=== PATIENT | female | born 1970 | race Caucasian/White ===

== ENCOUNTER 2018-04-29 22:02 | Emergency (ER) | payer MEDICAID, SELFPAY ==
[2018-04-29 22:13] VITALS: BP 125/99; PULSE 112; RESP 22; TEMP 38.2; O2SAT 96
[2018-04-29 22:47] VITALS: TEMP 38.2
[2018-04-29] MEDS: Ibuprofen 600 MG TAB PO (22:47)
--- NOTE | 2018-04-29 23:13 | W.ED.GENAD ---
Discharge Plan Disposition Patient Disposition: HOME Condition: Stable Discharge Details Chief Complaint: RespSymp Clinical Impression: Influenza Primary Care Provider: Thaddeus Urban ED Provider: Horacio Summers Home Meds and New Rx's Prescriptions: New oseltamivir [Tamiflu] 75 mg capsule 75 mg PO DAILY Qty: 9 RF: 0 Continued levothyroxine 50 MCG tablet 50 mcg PO DAILY RF: 0 ibuprofen 600 MG tablet 600 mg PO TID Qty: 30 RF: 1 Discontinued hydrocortisone 30 GM ointment 1 applic Topical PRN PRNRF: 0 acyclovir 800 MG tablet 800 mg PO 5X/DAY Qty: 25 RF: 0 tramadol 50 MG tablet 50 mg PO Q4H PRN PRN (Reason: Pain) Qty: 30 RF: 1 Discharge Instructions Instructions: Influenza (ED) Stand Alone Forms: Work Release Referrals: Thaddeus Urban [Primary Care Provider] - (As needed for reassessment or if not improving in 1 week) Medical Decision Making Patient reports for the last 24 hours she has had significant nasal congestion, headache, myalgias, fever chills, cough, rib pain. She states that her daughter who is also with her in the emergency department had symptoms that started 3 days ago and they have both been ill.. 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 Physical exam shows a ill-appearing adult female with clear lung sounds, obvious nasal congestion, mild posterior pharynx erythema, bilateral normal TMs and otherwise unremarkable examination. I am concerned about influenza given recent local prevalence in patient's symptoms so influenza swab was sent. Pending results patient given Motrin for fever control as she is febrile and tachycardic on presentation. Review of patient's influenza testing which is negative but patient's daughter is positive I did discuss with patient risk versus benefit of Tamiflu due to the fact that I feel that she does have influenza illness in spite of negative test. Patient stated understanding of risk versus benefit of Tamiflu and started therapy immediately this evening and states clear understanding to take medication until fully completed. Patient given work note to excuse her from any work activities and informed to return for any new or worsening symptoms otherwise to follow-up with primary care. After discussion of diagnosis and plan of care patient has no further needs, questions, or concerns and states clear understanding to return to the emergency department for any worsening symptoms. HPI General Mode of arrival: ambulatory. Date/Time Provider Initiated Documentation: 04/29/18 22:19. Limitations to Documentation: no limitations. Information obtained by: patient and RN notes reviewed. History of Present Illness 47 year old F presents to the emergency department with the chief complaint of fever, body aches, cough, sore throat, ear, described as severe, with intensity rated at 8. Quality is described as aching, and is localized to the chest. Patient reports no radiation. Patient started experiencing this day(s) (1) and it has been constant. No relieving factors improve symptom(s), No exacerbating factors reported . Patient notes no other symptoms.. Patient did receive the following treatments prior to arrival, none Related Data Home Medications Medication Instructions Recorded Confirmed ibuprofen 600 mg PO TID #30 tab 12/06/14 01/06/15 levothyroxine 50 mcg PO DAILY 12/06/14 01/06/15 oseltamivir [Tamiflu] 75 mg PO DAILY #9 cap 04/29/18 Previous Rx's Medication Instructions Recorded ibuprofen 600 mg PO TID #30 tab 12/06/14 oseltamivir [Tamiflu] 75 mg PO DAILY #9 cap 04/29/18 Allergies Allergy/AdvReac Type Severity Reaction Status Date / Time No Known Allergies Allergy Unverified 04/29/18 22:39 General Stated Complaint: RespSymp SANA: 3 Review of Systems Constitutional Reports chills, Reports difficulty sleeping (Due to coughing), Reports fatigue, Reports fever(s) and Reports malaise ENT Reports otalgia, Reports hoarseness, Reports nasal congestion, Reports sinus pressure and Reports sore throat Cardiovascular Denies dyspnea Respiratory Reports cough, Reports pain on inspiration, Reports pain with cough and Denies dyspnea Gastrointestinal Reports abdominal pain and Reports nausea Musculoskeletal Reports myalgias and Denies joint swelling Integumentary/Breasts Denies rash Endocrine Reports fatigue [facility] Medical History Hypothyroidism (Chronic) Surgical History Ligation of fallopian tube (Chronic) Social History Smoking/Tobacco Use Status: Former Tobacco Use Exam Const General: cooperative, comfortable and no acute distress Orientation: alert, awake and oriented x3 [facility] Head: normal to inspection Ears: hearing grossly normal bilaterally and TM's normal bilaterally General nose exam: external nose normal, no nasal discharge and other (Nasal congestion) Face and sinus: sinus tenderness frontal and maxillary Mouth: oral mucosae normal Throat: abnormal tonsil bilaterally erythema (mild) and posterior oropharynx abnormal erythema Eyes General: appearance normal, both eyes and all related structures Conjunctivae: conjunctivae normal Sclera: sclerae normal Neck Neck: normal visual inspection, full ROM, no lymphadenopathy, meningismus present and no JVD Resp Effort & Inspection: normal respiratory effort, able to speak in complete sentences, no audible wheezes, cough Quality of cough: actively coughing and not labored Auscultation: clear to auscultation bilaterally Cardio Rate: regular rate Rhythm: regular rhythm Heart Sounds: S1 normal and S2 normal Skin General skin exam: no rashes or lesions noted and dry skin Rashes: no rashes Neuro General: alert, awake, oriented x3 and gait normal Course Vital Signs Temperature 38.2 C H 04/29/18 22:13 Pulse 112 H 04/29/18 22:13 Respiratory Rate 22 04/29/18 22:13 Blood Pressure 125/99 H 04/29/18 22:13 Pulse Oximetry 96 04/29/18 22:13 Temperature 38.2 C H 04/29/18 22:47 Temperature Source Temporal Artery Scan 04/29/18 22:13 Pulse 112 H 04/29/18 22:13 Respiratory Rate 22 04/29/18 22:13 Respiratory Effort Non-Labored 04/29/18 22:39 Respiratory Depth Normal 04/29/18 22:39 Blood Pressure 125/99 H 04/29/18 22:13 Blood Pressure Position Sitting 04/29/18 22:13 Pulse Oximetry 96 04/29/18 22:13 Oxygen Delivery Method Room Air 04/29/18 22:13 Oxygen Flow Rate 0 04/29/18 22:13 Pain Level 10 04/29/18 22:13 Comment 04/29/18 22:13 Lab/Test Results Lab/Test Results: 04/29/18 22:24 Nasopharynx Influenza Types A,B Antigen - Final
--- NOTE | 2018-04-29 23:16 | ED.GENADUL_ITS ---
Discharge Plan Disposition Patient Disposition: HOME Condition: Stable Discharge Details Chief Complaint: RespSymp Clinical Impression: Influenza Primary Care Provider: Thaddeus Urban ED Provider: Horacio Summers Home Meds and New Rx's Prescriptions: New oseltamivir [Tamiflu] 75 mg capsule 75 mg PO DAILY Qty: 9 RF: 0 Continued levothyroxine 50 MCG tablet 50 mcg PO DAILY RF: 0 ibuprofen 600 MG tablet 600 mg PO TID Qty: 30 RF: 1 Discontinued hydrocortisone 30 GM ointment 1 applic Topical PRN PRNRF: 0 acyclovir 800 MG tablet 800 mg PO 5X/DAY Qty: 25 RF: 0 tramadol 50 MG tablet 50 mg PO Q4H PRN PRN (Reason: Pain) Qty: 30 RF: 1 Discharge Instructions Instructions: Influenza (ED) Stand Alone Forms: Work Release Referrals: Thaddeus Urban [Primary Care Provider] - (As needed for reassessment or if not improving in 1 week) Medical Decision Making Patient reports for the last 24 hours she has had significant nasal congestion, headache, myalgias, fever chills, cough, rib pain. She states that her daughter who is also with her in the emergency department had symptoms that started 3 days ago and they have both been ill.. 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 Physical exam shows a ill-appearing adult female with clear lung sounds, obvious nasal congestion, mild posterior pharynx erythema, bilateral normal TMs and otherwise unremarkable examination. I am concerned about influenza given recent local prevalence in patient's symptoms so influenza swab was sent. Pending results patient given Motrin for fever control as she is febrile and tachycardic on presentation. Review of patient's influenza testing which is negative but patient's daughter is positive I did discuss with patient risk versus benefit of Tamiflu due to the fact that I feel that she does have influenza illness in spite of negative test. Patient stated understanding of risk versus benefit of Tamiflu and started therapy immediately this evening and states clear understanding to take medication until fully completed. Patient given work note to excuse her from any work activities and informed to return for any new or worsening symptoms otherwise to follow-up with primary care. After discussion of diagnosis and plan of care patient has no further needs, questions, or concerns and states clear understanding to return to the emergency department for any worsening symptoms. HPI General Mode of arrival: ambulatory . Date/Time Provider Initiated Documentation: 04/29/18 22:19 . Limitations to Documentation: no limitations . Information obtained by: patient and RN notes reviewed . History of Present Illness 47 year old F presents to the emergency department with the chief complaint of fever, body aches, cough, sore throat, ear, described as severe, with intensity rated at 8. Quality is described as aching, and is localized to the chest. Patient reports no radiation. Patient started experiencing this day(s) (1) and it has been constant. No relieving factors improve symptom(s), No exacerbating factors reported . Patient notes no other symptoms.. Patient did receive the following treatments prior to arrival, none Related Data Home Medications Medication Instructions Recorded Confirmed ibuprofen 600 mg PO TID #30 tab 12/06/14 01/06/15 levothyroxine 50 mcg PO DAILY 12/06/14 01/06/15 oseltamivir [Tamiflu] 75 mg PO DAILY #9 cap 04/29/18 Previous Rx's Medication Instructions Recorded ibuprofen 600 mg PO TID #30 tab 12/06/14 oseltamivir [Tamiflu] 75 mg PO DAILY #9 cap 04/29/18 Allergies Allergy/AdvReac Type Severity Reaction Status Date / Time No Known Allergies Allergy Unverified 04/29/18 22:39 General Stated Complaint: RespSymp SANA: 3 Review of Systems Constitutional Reports chills, Reports difficulty sleeping (Due to coughing), Reports fatigue, Reports fever(s) and Reports malaise ENT Reports otalgia, Reports hoarseness, Reports nasal congestion, Reports sinus pressure and Reports sore throat Cardiovascular Denies dyspnea Respiratory Reports cough, Reports pain on inspiration, Reports pain with cough and Denies dyspnea Gastrointestinal Reports abdominal pain and Reports nausea Musculoskeletal Reports myalgias and Denies joint swelling Integumentary/Breasts Denies rash Endocrine Reports fatigue [facility] Medical History Hypothyroidism (Chronic) Surgical History Ligation of fallopian tube (Chronic) Social History Smoking/Tobacco Use Status: Former Tobacco Use Exam Const General: cooperative, comfortable and no acute distress Orientation: alert, awake and oriented x3 [facility] Head: normal to inspection Ears: hearing grossly normal bilaterally and TM's normal bilaterally General nose exam: external nose normal, no nasal discharge and other (Nasal congestion) Face and sinus: sinus tenderness frontal and maxillary Mouth: oral mucosae normal Throat: abnormal tonsil bilaterally erythema (mild) and posterior oropharynx abnormal erythema Eyes General: appearance normal, both eyes and all related structures Conjunctivae: conjunctivae normal Sclera: sclerae normal Neck Neck: normal visual inspection, full ROM, no lymphadenopathy, meningismus present and no JVD Resp Effort & Inspection: normal respiratory effort, able to speak in complete sentences, no audible wheezes, cough Quality of cough: actively coughing and not labored Auscultation: clear to auscultation bilaterally Cardio Rate: regular rate Rhythm: regular rhythm Heart Sounds: S1 normal and S2 normal Skin General skin exam: no rashes or lesions noted and dry skin Rashes: no rashes Neuro General: alert, awake, oriented x3 and gait normal Course Vital Signs Temperature 38.2 C H 04/29/18 22:13 Pulse 112 H 04/29/18 22:13 Respiratory Rate 22 04/29/18 22:13 Blood Pressure 125/99 H 04/29/18 22:13 Pulse Oximetry 96 04/29/18 22:13 Temperature 38.2 C H 04/29/18 22:47 Temperature Source Temporal Artery Scan 04/29/18 22:13 Pulse 112 H 04/29/18 22:13 Respiratory Rate 22 04/29/18 22:13 Respiratory Effort Non-Labored 04/29/18 22:39 Respiratory Depth Normal 04/29/18 22:39 Blood Pressure 125/99 H 04/29/18 22:13 Blood Pressure Position Sitting 04/29/18 22:13 Pulse Oximetry 96 04/29/18 22:13 Oxygen Delivery Method Room Air 04/29/18 22:13 Oxygen Flow Rate 0 04/29/18 22:13 Pain Level 10 04/29/18 22:13 Comment 04/29/18 22:13 Lab/Test Results Lab/Test Results: 04/29/18 22:24 Nasopharynx Influenza Types A,B Antigen - Final
== END 2018-04-29 23:28 | disposition home or self-care (01) ==
PROVIDERS: Emergency Provider Nurse Practitioner Family; PCP Specialist/Technologist Athletic Trainer
DX: J11.1 Influenza due to unidentified influenza virus with other respiratory manifestations (principal)
CPT/HCPCS: 87449; 99283

== ENCOUNTER 2018-06-23 10:23 | Outpatient (REF) | payer MEDICAID, SELFPAY ==
[2018-06-23 21:29] LABS: Anion Gap 10.8 mmol/L (3-11); BUN 20 mg/dL (7-18); CO2 25.2 mmol/L (21.0-32.0); Calcium 9.1 mg/dL (8.5-10.1); Chloride 105 mmol/L (98-107); Cholesterol 212 mg/dL (50-200); Estimated GFR 52.79 (mL/min/1.73m2); Glucose 101 mg/dL (70-100); HDL Cholesterol 58 mg/dL (40-60); LDL CHOLESTEROL 124 mg/dL (<100); Potassium 4.3 mmol/L (3.5-5.1); Sodium 141 mmol/L (136-145); TSH (W/Ref FT4) 4.41 uIU/mL (0.358-3.74); Triglyceride 142 mg/dL (30-150)
[2018-06-23 22:02] LABS: FREE T4 0.76 ng/dL (0.76-1.46)
== END 2018-06-23 10:43 ==
LOC: NCHCN 10:23
PROVIDERS: PCP Specialist/Technologist Athletic Trainer; Visit Provider Specialist/Technologist Athletic Trainer
DX: E03.9 Hypothyroidism, unspecified (principal); Z00.00 Encounter for general adult medical examination without abnormal findings
CPT/HCPCS: 80048; 80061; 83721; 84439; 84443

== ENCOUNTER 2018-08-18 11:07 | Outpatient (REF) | payer MEDICAID, SELFPAY ==
[2018-08-18 21:26] LABS: TSH (W/Ref FT4) 1.28 uIU/mL (0.358-3.74)
== END 2018-08-18 11:27 ==
LOC: NCHCN 11:07
PROVIDERS: PCP Specialist/Technologist Athletic Trainer; Visit Provider Specialist/Technologist Athletic Trainer
DX: E03.9 Hypothyroidism, unspecified (principal)
CPT/HCPCS: 84443

== ENCOUNTER 2019-04-24 21:00 | Emergency (ER) | payer OTHER, SELFPAY ==
--- NOTE | 2019-04-24 21:05 | W.ED.GENAD ---
Discharge Plan Disposition Patient Disposition: HOME Condition: Good Discharge Details Chief Complaint: Nk/Back Pain Clinical Impression: Contusion, Back pain Primary Care Provider: Thaddeus Urban ED Provider: Oralia Parks Home Meds and New Rx's Prescriptions: Continued levothyroxine 50 MCG tablet 50 mcg PO DAILY RF: 0 Discharge Instructions Instructions: Contusion in Adults (ED), Back Pain (ED) Additional Instructions: Encourage frequent walking, gentle stretching. May continue with Tylenol and ibuprofen as needed for discomfort. Patches are available [id number] such as Salonpas or Lidoderm patches to help with pain. Heat or ice to affected area. Please follow up with occupational health next week for reevaluation, call tomorrow to schedule appointment. If you develop weakness, altered sensation, increased pain or other new/worsening symptoms please seek care urgently once again. Stand Alone Forms: Work Release Referrals: Thaddeus Urban [Primary Care Provider] - Discharge Data Discharge Date/Time-TO BE ENTERED AT DEPARTURE: 04/24/19 22:30 Medical Decision Making Patient is a 48-year-old female, accompanied by family, with chief complaint of low back pain. She reports that prior to arrival she slipped on ice and fell outside of her work. Landed directly onto her back. Did not hit her head, no loss of consciousness. Is primarily endorsing lumbar back pain. She is not taking anything for this as of yet. Was able to get up and ambulate unassisted. She denies any radicular pain. No altered sensation. Denies any weakness. Has not had pain like this historically. Denies any incontinence. On exam, patient appears nontoxic. She appears comfortable. Afebrile. Heart rate 85. Blood pressure 139/72. Breathing comfortably, lungs are clear. Normal cardiovascular exam. Abdomen is benign. She is no midline tenderness, no paraspinal tenderness. Pain seems to be more lateral to this. No CVA tenderness. Pain is fairly diffuse and worse with forward flexion. Negative straight leg raise. She is good rotation of her back but does have pain with full flexion. No saddle paresthesias. Strength is equal in bilateral lower extremities. Reflexes equal bilaterally. At this point, I do not see any evidence of acute neurologic dysfunction, no evidence of cauda equina. Given the patient's fall and her concern for possible fracture, plan for imaging. Give Tylenol, ibuprofen and Lidoderm patch to help with discomfort. Patient became tired of waiting for x-ray. We did discuss this once again. She is feeling improved after the above intervention. Requesting discharge at this time. I do have a very low suspicion at this time for fracture given the mechanism and location of her discomfort. Patient is appropriate and will return if she develops new or worsening symptoms. She was given strict return precautions. Advise that she follow-up with occupational health. We discussed activity she should avoid. Work note was given at patient's request. All of her questions and concerns were addressed and she is in agreement this plan. HPI General Mode of arrival: ambulatory. Date/Time Provider Initiated Documentation: 04/24/19 21:03. Limitations to Documentation: no limitations. Information obtained by: patient, family and RN notes reviewed. History of Present Illness 48 year old F presents to the emergency department with the chief complaint of Lumbar back pain, described as moderate, Quality is described as aching, Patient reports no radiation. Patient started experiencing this minute(s) and it has been constant. Immobilization improves symptom(s), Movement worsens symptoms . Patient notes no other symptoms.. Patient did receive the following treatments prior to arrival, none Related Data Home Medications Medication Instructions Recorded Confirmed levothyroxine 50 mcg PO DAILY 12/06/14 04/24/19 Allergies Allergy/AdvReac Type Severity Reaction Status Date / Time No Known Allergies Allergy Unverified 04/24/19 22:11 General SANA: 3 Review of Systems Constitutional Constitutional: Reports as per HPI, Denies chills, Denies fatigue, Denies fever(s), Denies frequent falls and Denies headache(s) Eyes Eyes: Denies change in vision ENT Ears, Nose, Mouth, and Throat: Denies headache(s) Cardiovascular Cardiovascular: Denies chest pain, Denies dyspnea and Denies dyspnea on exertion Respiratory Respiratory: Denies cough, Denies dyspnea and Denies dyspnea on exertion Gastrointestinal Gastrointestinal: Denies abdominal pain, Denies change in bowel habits and Denies fecal incontinence Genitourinary Genitourinary: Reports as per HPI, Denies urinary incontinence and Denies urinary hesitancy Musculoskeletal Musculoskeletal: Reports as per HPI, Reports back pain, Denies muscle weakness, Denies numbness, Denies radiating pain into limb, Reports stiffness and Denies tingling Integumentary/Breasts Skin/Breast: Reports as per HPI and Denies rash Neurologic Neurologic: Reports as per HPI, Denies frequent falls, Denies headache(s), Denies focal weakness, Denies numbness, Denies radicular pain, Denies sensory deficit, Denies tingling and Denies paresthesias Endocrine Endocrine: Denies fatigue [facility] Medical History Hypothyroidism (Chronic) Surgical History Ligation of fallopian tube (Chronic) Social History Smoking/Tobacco Use Status: Former Tobacco Use Alcohol Intake: current Alcohol Intake frequency: holidays/special occasions only Drug use: Never Do you feel safe at home: Yes Do you feel safe in your relationship?: Yes Exam Const General: cooperative, healthy appearing, comfortable, no acute distress, well developed and well groomed Nutritional Appearance: average body habitus and well nourished Orientation: alert and awake Eyes General: appearance normal, both eyes and all related structures Neck Neck: normal visual inspection, full ROM, no lymphadenopathy and no meningeal signs Resp Effort & Inspection: normal respiratory effort and able to speak in complete sentences Auscultation: clear to auscultation bilaterally, no rales, no rhonchi and no wheezes Cardio Rate: regular rate Rhythm: regular rhythm Heart Sounds: S1 normal and S2 normal GI Inspection: normal to inspection Back/Spine/Pelvis Back: no CVA tenderness Cervical Spine: normal cervical lordosis and cervical ROM normal Thoracic/Lumbar Spine: thoracic and lumbar spine normal to inspection, No thoraco-lumbar ROM normal (Normal rotation, with limited forward flexion), straight leg raise negative bilaterally, No kyphosis, No mass, pain with thoraco-lumbar ROM (Pain with forward flexion), No paraspinal tenderness, No scoliosis, No thoraco-lumbar spasm, No thoracic spinal tenderness and No lumbar spinal tenderness Pelvis: no pain with anterior-posterior compression, no pain with lateral compression, no buttock ecchymosis and no buttock tenderness Sacroiliac joints: bilaterally nontender Sacrum: no ecchymosis Skin General skin exam: no rashes or lesions noted Neuro General: alert and awake Cognition: normal cognition Speech: speech normal Gait: normal gait Motor: muscle tone normal throughout, strength 5/5 throughout, no movement abnormalities noted and no fasciculations Sensory Exam: no sensory deficits noted (no saddle paresthesias) DTR's: Rt Patellar: 2+, Lt Patellar: 2+, Rt Ankle: 2+ and Lt Ankle: 2+ Extrem General: normal to inspection, full ROM, normal capillary refill, no joint enlargement, no pedal edema, no calf tenderness and normal gait Psych Appearance: grossly normal and well kempt Mental Status: mental status grossly normal Speech and Movement: speech and movement normal
[2019-04-24] MEDS: Lidocaine 5% Patch 1 PATCH TP (22:19)
[2019-04-24] MEDS: Acetaminophen 500 MG TAB 1000 MG PO (22:19)
[2019-04-24] MEDS: Ibuprofen 600 MG TAB PO (22:19)
== END 2019-04-24 22:30 | disposition home or self-care (01) ==
PROVIDERS: Emergency Provider Physician Assistant; PCP Specialist/Technologist Athletic Trainer
DX: S30.0XXA Contusion of lower back and pelvis, initial encounter (principal); W00.0XXA Fall on same level due to ice and snow, initial encounter; Y99.0 Civilian activity done for income or pay
CPT/HCPCS: 99283

== ENCOUNTER 2019-11-30 14:19 | Outpatient (REF) | payer MEDICAID, SELFPAY ==
[2019-11-30 19:57] LABS: HCT 44.2 % (36.0-46.0); HGB 14.7 g/dL (12.0-15.5); Mean Corp. HGB Concentration 33.3 g/dL (32.0-36.0); Mean Corpuscular Hemoglobin 28.4 pg (27.0-33.0); Mean Corpuscular Volume 85.5 fL (80-95); Mean Platelet Volume 10.7 fL (8.0-11.0); Platelet Count 366 x1000/uL (130-400); RBC 5.17 m/cumm (4.00-5.20); RBC Distribution Width 13.1 % (11.7-14.6); White Blood Cell Count 11.29 k/cumm (4.4-10.8)
[2019-11-30 20:23] LABS: BUN 16 mg/dL (7-18); CREATININE 0.88 mg/dL (0.55-1.02); Calcium 9.5 mg/dL (8.5-10.1); Chloride 103 mmol/L (98-107); Glucose 98 mg/dL (74-106); Potassium 4.4 mmol/L (3.5-5.1); Sodium 138 mmol/L (136-145)
[2019-11-30 20:35] LABS: Vitamin D 25 Total 18.3 ng/ml (30-100)
[2019-11-30 21:00] LABS: Hemoglobin A1C 5.2 % (3.8-5.6)
== END 2019-11-30 14:39 ==
LOC: NCHCN 14:19
PROVIDERS: PCP Specialist/Technologist Athletic Trainer; Visit Provider Nurse Practitioner Family
DX: Z00.00 Encounter for general adult medical examination without abnormal findings (principal); F90.0 Attention-deficit hyperactivity disorder, predominantly inattentive type; E03.9 Hypothyroidism, unspecified
CPT/HCPCS: 80048; 82306; 85027; 83036; 84443

== ENCOUNTER 2020-04-26 08:43 | Emergency (ER) | payer MEDICAID, SELFPAY ==
[2020-04-26 08:44] VITALS: BP 149/76; PULSE 82; RESP 17; TEMP 36.6; O2SAT 99
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
[2020-04-26] MEDS: Ketorolac 30 MG/ML VIAL IVP (08:55)
[2020-04-26] MEDS: HYDROmorphone 2 MG/ML VIAL 0.5 MG IVP (08:56)
[2020-04-26] MEDS: traMADol 50 MG TAB PO (09:18)
[2020-04-26] MEDS: Bacitracin 30 GM TUBE TP (09:19)
[2020-04-26 09:22] VITALS: BP 115/73; PULSE 61; RESP 17; O2SAT 98
--- NOTE | 2020-04-26 10:52 | NUR.NOTE ---
Nursing Note: Faxed referral to PCP/[facility] for follow up. Rosario Balderrama
== END 2020-04-26 09:31 | disposition home or self-care (01) ==
LOC: ER 09:10
PROVIDERS: Emergency Provider Emergency Medicine; PCP Family Medicine
DX: T20.26XA Burn of second degree of forehead and cheek, initial encounter (principal); T22.211A Burn of second degree of right forearm, initial encounter; X02.0XXA Exposure to flames in controlled fire in building or structure, initial encounter
CPT/HCPCS: 16020; 96374; 96375; J1885

== ENCOUNTER 2020-11-07 16:38 | Outpatient (REF) | payer MEDICAID, SELFPAY ==
[2020-11-07 19:51] LABS: BUN 21 mg/dL (7-18); CREATININE 0.8 mg/dL (0.55-1.02); Calcium 9.5 mg/dL (8.5-10.1); Chloride 105 mmol/L (98-107); Glucose 96 mg/dL (74-106); Potassium 4.9 mmol/L (3.5-5.1); Sodium 142 mmol/L (136-145); TSH 3.16 uIU/mL (0.36-3.74)
== END 2020-11-07 16:39 | disposition home or self-care (01) ==
LOC: NCHCN 16:38
PROVIDERS: PCP Family Medicine; Visit Provider Nurse Practitioner Family
DX: Z00.00 Encounter for general adult medical examination without abnormal findings (principal); E03.9 Hypothyroidism, unspecified
CPT/HCPCS: 80048; 84443

== ENCOUNTER 2021-02-06 12:32 | Outpatient (REF) | payer MEDICAID, SELFPAY ==
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
[2021-02-08 14:50] LABS: HIV-1/2 Ag & Ab Screen Negative (Negative)
[2021-02-10 10:21] LABS: Hepatitis C Ab w Rflx HCV PCR Negative (Negative)
[2021-02-10 10:58] LABS: Syphilis Serology (RPR) Negative (Negative)
[2021-02-10 15:10] LABS: Chlamydia Result Negative (Negative); GC Result Negative (Negative)
== END 2021-02-06 12:33 | disposition home or self-care (01) ==
LOC: NCHCN 12:32
PROVIDERS: PCP Family Medicine; Visit Provider Nurse Practitioner Family
DX: Z11.3 Encounter for screening for infections with a predominantly sexual mode of transmission (principal); Z12.4 Encounter for screening for malignant neoplasm of cervix; Z01.419 Encounter for gynecological examination (general) (routine) without abnormal findings; Z11.4 Encounter for screening for human immunodeficiency virus [HIV]; Z11.8 Encounter for screening for other infectious and parasitic diseases; Z11.51 Encounter for screening for human papillomavirus (HPV)
CPT/HCPCS: 86803; 87389; 87491; 87591; 88142; 86592; 87624

== ENCOUNTER 2021-03-07 12:05 | Outpatient (REF) | payer MEDICAID, SELFPAY ==
[2021-03-07 20:35] LABS: TSH 2.16 uIU/mL (0.36-3.74)
== END 2021-03-07 12:06 | disposition home or self-care (01) ==
LOC: NCHCN 12:05
PROVIDERS: PCP Family Medicine; Visit Provider Nurse Practitioner Family
DX: E03.9 Hypothyroidism, unspecified (principal)
CPT/HCPCS: 84443

== ENCOUNTER 2021-11-02 15:24 | Emergency (ER) | payer MEDICAID, SELFPAY ==
[2021-11-02] VITALS (27 sets, daily range): BP systolic 117–144; BP diastolic 65–126; PULSE 64–100; RESP 12–23; TEMP 36.5; O2SAT 90–99
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
--- NOTE | 2021-11-02 15:45 | DI.RAD_ITS ---
Exam(s) XR FEMUR LT EXAM: XR FEMUR LT CLINICAL HISTORY: pain, trauma. TECHNIQUE: 2D digital imaging was performed of the left femur. Four images were obtained. AP and lat eral views were obtained. COMPARISON: CT CT CHEST/ABD/PEL W from 11/02/2021 FINDINGS: BONES: No acute fracture is present. No bony destructive lesion is seen. Visualized portion of knee a nd hip joints are unremarkable. SOFT TISSUE: Normal. IMPRESSION: Unremarkable radiographs of the left femur. DATA REPOSITORY: RADIATION DOSE DELIVERED:
--- NOTE | 2021-11-02 15:45 | DI.RAD_ITS ---
Exam(s) XR PELVIS AP EXAM: XR PELVIS AP CLINICAL HISTORY: pain, trauma. TECHNIQUE: 2D digital imaging was performed. One view is obtained. COMPARISON: No exams were available for comparison FINDINGS: BONES: No acute fracture is present. No bony destructive lesion is seen. JOINTS: No dislocation present. No joint space narrowing is present. SOFT TISSUE: Normal. IMPRESSION: Unremarkable radiographs of the pelvis. DATA REPOSITORY: RADIATION DOSE DELIVERED:
[2021-11-02 16:00] LABS: Abs Immature Grans 0.32 10^3/uL (0.0-0.06); Absolute Eosinophil Count 0.17 10^3/uL (0.0-0.7); Absolute Monocyte Count 0.75 10^3/uL (0.1-0.8); Basophils % 0.5; HCT 42.3 % (36.0-46.0); HGB 13.9 g/dL (11.2-15.7); Immature Grans % 1.9; Lymphocytes % 10.1; MCH 28.1 pg (27.0-33.0); MCHC 32.9 % (32.0-36.0); MCV 86 fL (80-95); Monocytes % 4.4; Neutrophils % 82.1; Platelet Count 355 10^3/uL (130-400); RBC 4.94 10^6/uL (3.93-5.22); RDW 13.1 % (11.7-14.6); RDW-SD 40.5 fL; WBC 17.15 10^3/uL (4.4-10.8)
[2021-11-02 16:06] LABS: Absolute Basophil Count 0.09 10^3/uL (0.0-0.2); Absolute Lymphocyte Count 1.73 10^3/uL (1.2-3.4); Absolute Neutrophil Count 14.08 10^3/uL (1.2-6.7)
[2021-11-02 16:10] LABS: ALT 35 U/L (14-59); AST 25 U/L (15-37); Albumin 3.8 g/dL (3.4-5.0); Alkaline Phosphatase 81 U/L (46-116); Anion Gap 9.6 mmol/L (3-11); BUN 17 mg/dL (7-18); Bilirubin, Total 0.4 mg/dL (0.2-1.0); CO2 26.4 mmol/L (21.0-32.0); CREATININE 0.9 mg/dL (0.55-1.02); Calcium 9.2 mg/dL (8.5-10.1); Chloride 107 mmol/L (98-107); Glucose 130 mg/dL (74-106); Potassium 4.3 mmol/L (3.5-5.1); Sodium 143 mmol/L (136-145); Total Protein 7.8 g/dL (6.4-8.2); Troponin I < 50 ng/L (<or=60)
[2021-11-02] MEDS: Omnipaque 350 MG/ML 100 ML BTL IJ (16:19)
[2021-11-02] MEDS: Normal Saline Flush 10 ML SYR IVP (16:20)
[2021-11-02] MEDS: HYDROmorphone 2 MG/ML VIAL 1 MG IVP (16:30)
--- NOTE | 2021-11-02 16:33 | DI.VRAD_ITS ---
PROCEDURE INFORMATION: Exam: CT Head Without Contrast Exam date and time: 11/02/2021 3:48 PM Age: 51 years old Clinical indication: Trauma TECHNIQUE: Imaging protocol: Computed tomography of the head without contrast. Radiation optimization: All CT scans at this facility use at least one of these dose optimization techniques: automated exposure control; mA and/or kV adjustment per patient size (includes targeted exams where dose is matched to clinical indication); or iterative reconstruction. COMPARISON: No relevant prior studies available. FINDINGS: Brain: No intracranial hemorrhage or extra-axial fluid collection. No evidence of mass effect or midline shift. Lemus-white matter differentiation is intact. Cerebral ventricles: No ventriculomegaly. Paranasal sinuses: Left maxillary sinus retention cyst. Mastoid air cells: Unremarkable. Bones/joints: No acute osseus lesion or fracture. Soft tissues: Unremarkable. IMPRESSION: No acute intracranial pathology. PROCEDURE INFORMATION: Exam: CT Cervical Spine Without Contrast Exam date and time: 11/02/2021 3:48 PM Age: 51 years old Clinical indication: Trauma TECHNIQUE: Imaging protocol: Computed tomography of the cervical spine without contrast. Radiation optimization: All CT scans at this facility use at least one of these dose optimization techniques: automated exposure control; mA and/or kV adjustment per patient size (includes targeted exams where dose is matched to clinical indication); or iterative reconstruction. COMPARISON: No relevant prior studies available. FINDINGS: Bones/joints: Vertebral body heights are maintained. No locked or perched facets. Multilevel facet arthropathy. No acute cervical spine fracture. The dens is intact. Atlanto-axial intervals are normal. Discs/Spinal canal/Neural foramina: Multilevel mild degenerative disc height loss and osteophyte formation. No significant spinal stenosis. Lungs: Lung apices are clear. Soft tissues: Unremarkable. IMPRESSION: No acute cervical spine fracture. Dictated and Authenticated by: Ed Shetty MD. Ordering:ANGEL Martinez MD
[2021-11-02 16:44] LABS: ETHANOL BLOOD < 3.0 mg/dL (<10)
[2021-11-02] MEDS: Ondansetron 4 MG/2 ML VIAL IVP (16:46)
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
[2021-11-02 17:22] LABS: Prothrombin Time 10.2 sec (9.3-11.0)
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
[2021-11-02] MEDS: Metoclopramide 10 MG/2 ML VIAL IVP (18:09)
[2021-11-02] MEDS: HYDROmorphone 2 MG/ML VIAL IVP (18:13)
== END 2021-11-02 18:26 | disposition short-term general hospital (02) ==
PROVIDERS: Emergency Provider Student in an Organized Health Care Education/Training Program; PCP Family Medicine
DX: S22.080A Wedge compression fracture of T11-T12 vertebra, initial encounter for closed fracture (principal); S22.32XA Fracture of one rib, left side, initial encounter for closed fracture; V59.9XXA Occupant (driver) (passenger) of pick-up truck or van injured in unspecified traffic accident, initial encounter
CPT/HCPCS: 73552; 74177; 80053; 86850; 86900; 86901; 96374; 96375; 96376; 99285; 70450; 71260; 72125; 72170; 80320; 84484; 85025; 85610; J2405; J2765; J3490

== ENCOUNTER 2022-03-20 15:32 | Outpatient (REF) | payer MEDICAID, SELFPAY ==
[2022-03-20 16:51] LABS: Hemoglobin A1C 5.5 % (<5.7)
[2022-03-20 17:12] LABS: ALT 18 U/L (14-59); AST 17 U/L (15-37); Albumin 3.7 g/dL (3.4-5.0); Alkaline Phosphatase 70 U/L (46-116); Anion Gap 9.4 mmol/L (3-11); BUN 26 mg/dL (7-18); Bilirubin, Total 0.4 mg/dL (0.2-1.0); CO2 26.6 mmol/L (21.0-32.0); CREATININE 0.9 mg/dL (0.55-1.02); Calcium 9.4 mg/dL (8.5-10.1); Chloride 107 mmol/L (98-107); Estimated GFR 76.92 (mL/min/1.73m2); Glucose 90 mg/dL (74-106); Sodium 143 mmol/L (136-145); TSH 1.45 uIU/mL (0.36-3.74); Total Protein 7.6 g/dL (6.4-8.2)
== END 2022-03-20 15:33 | disposition home or self-care (01) ==
LOC: NCHCN 15:32
PROVIDERS: PCP Family Medicine; Visit Provider Nurse Practitioner Family
DX: M54.2 Cervicalgia (principal); M54.6 Pain in thoracic spine; E03.9 Hypothyroidism, unspecified; Z00.00 Encounter for general adult medical examination without abnormal findings
CPT/HCPCS: 80053; 83036; 84443

== ENCOUNTER → 2022-04-24 01:00 | Outpatient (CLI) | payer MEDICAID, SELFPAY ==
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
== END ==
PROVIDERS: PCP Family Medicine; Visit Provider Nurse Practitioner Family
DX: M54.6 Pain in thoracic spine (principal); M48.54XA Collapsed vertebra, not elsewhere classified, thoracic region, initial encounter for fracture; M47.815 Spondylosis without myelopathy or radiculopathy, thoracolumbar region
CPT/HCPCS: 72080

== ENCOUNTER 2022-05-15 00:24 | Outpatient (CLI) | payer MEDICAID, SELFPAY ==
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
== END 2022-05-15 00:44 ==
LOC: DI 00:24
PROVIDERS: PCP Family Medicine; Visit Provider Internal Medicine
DX: M25.511 Pain in right shoulder (principal)
CPT/HCPCS: 73030

== ENCOUNTER 2022-05-15 00:24 | Outpatient (CLI) | payer MEDICAID, SELFPAY ==
--- NOTE | 2022-05-15 08:51 | DI.MAMMO_ITS ---
Exam(s) MAMMO SCREENING EXAM: MAMMO SCREENING CLINICAL HISTORY: SCREENING,Z12.31. TECHNIQUE: Bilateral full field digital CC and MLO mammographic images were obtained with 3D tomosyn thesis and utilizing computer aided detection (CAD). COMPARISON: None. This mammogram submitted to mo for interpretation 05/21/2022 FINDINGS: There multiple asymmetric densities in the left breast which require further investigation with spot compression views and ultrasound. One is located posteromedially measuring 9 x 6 millimeters and 10 cm in from the nipple on the CC view. Another is located slightly anterior to this, 7 cm in the nipp le on the CC view. Another is located laterally in left breast measuring 8 x 5 millimeters and locat ed 6 cm in from the nipple on the CC view. Otherwise there are benign-appearing nodular densities bilaterally. Also an asymmetric density later ally in the opposite-right breasts measuring approximately 1.4 x 1.0 and located approximately 11 cm in from the nipple on the CC view. There are no malignant-appearing microcalcification groups in either breast. There is no significant architectural distortion nor skin thickening-retraction. IMPRESSION: Asymmetric densities bilaterally, more prominent and concerning in the left breast. Bilateral additi onal imaging recommended including multiple spot compression views and bilateral breast ultrasound Also comparison to any prior outside mammograms if they exist and can be obtained. . BI-RADS Category 0 - Assessment Incomplete: Need additional imaging evaluation Breast Density - Category B - Scattered areas of fibroglandular density Breast density Category C or D implies that the patient has dense breast tissue. Dense breast tissue can make it harder to find cancer on a mammogram. Dense breast tissue is also associated with an incr eased risk of breast cancer. This information about the result of the mammogram report was provided to the patient to raise their awareness. Use this report when you speak with the patient about their risks for breast cancer, which includes their family history. At that time, you may recommend additional screening tests (Ultrasoun d or MRI) as these tests may add significant information. A negative radiographic report should not delay biopsy if a dominant or clinically suspicious mass is present. Up to ten percent of cancers are not identified on mammography. A negative report may reinforce clinical impression. Adenosis and dense breasts may obscure an underlying neoplasm. False positive reports average 6 to 10%. Patient will receive a letter notifying them of these results.
== END 2022-05-15 00:44 ==
LOC: DI 00:24
PROVIDERS: PCP Family Medicine; Visit Provider Nurse Practitioner Family
DX: Z12.31 Encounter for screening mammogram for malignant neoplasm of breast (principal); R92.8 Other abnormal and inconclusive findings on diagnostic imaging of breast
CPT/HCPCS: 77063; 77067

== ENCOUNTER 2022-06-04 03:18 | Outpatient (CLI) | payer MEDICAID, SELFPAY ==
--- NOTE | 2022-06-04 | DI.US_ITS ---
Exam(s) US BREAST LT COMPLETE US BREAST RT COMPLETE MG MAMMO SCREEN CALL BACK BI EXAM: MG MAMMO SCREEN CALL BACK BI AND BILATERAL COMPLETE BREAST ULTRASOUND CLINICAL HISTORY: F/U MAMMO, R92.8,LT ASYMMETRIC DENSITIES,RT ASYMMETRIC DENSITY. TECHNIQUE: Unilateral spot mammographic images obtained with 3D tomosynthesisand utilizing computer aided detection (CAD). . Complete BILATERAL breast Ultrasound was also performed, including all 4 quadrants, the retroareolar region, and the ipsilateral axilla. COMPARISON: Prior mammograms were reviewed. This additional imaging was performed due to findings described on the recent baseline screening mammogram of 05/15/2022. FINDINGS: DIAGNOSTIC MAMMOGRAM: Additional bilateral spot mammographic views performed todaydo not dissipate and the of the asymmetri c densities described on the recent screening mammogram. COMPLETE BILATERAL BREAST ULTRASOUND: Right breast ultrasound: Ultrasound performed today reveals no significant focal ultrasound findings in the right breast. Thi s implies that the asymmetric density located laterally in the right breast is probably just asymmetr ic fibroglandular tissue or benign intramammary lymph node. Left breast ultrasound: In the left breast at 3 o'clock position there is a benign microcyst measuring 6 x 2 millimeters aleyda esponding to finding at this location on the mammogram there are no focal ultrasound findings more me dially in the left breast to correspond to the other 2 asymmetric densities. Therefore these may jus t represent asymmetric fibroglandular tissue as opposed to significant pathology. Scanning of both axillary regions is negative for significant adenopathy. IMPRESSION: 1. No ultrasound findings in the left breast to correspond to the medially located 2 asymmetric dens ities described on the recent baseline mammogram. There is small benign microcyst at the 3 o'clock p osition of the left breast corresponding to the laterally located small nodule on the recent mammogra m. 2. No ultrasound findings in the right breast to correspond to the solitary asymmetric density in th e right breast seen on the recent mammogram. Appropriate follow-up , as discussed by myself with the patient today, is repeat bilateral mammogram in 3 months to ensure mammographic stability of these bilateral findings. The patient was informed of these findings and recommendations by myself prior to leaving the departm ent today. BI-RADS Category 3 - 3 month - Probably Benign Finding: Recommend follow-up mammography in 3 months Breast Density - Category B - Scattered areas of fibroglandular density Breast density Category C or D implies that the patient has dense breast tissue. Dense breast tissue can make it harder to find cancer on a mammogram. Dense breast tissue is also associated with an incr eased risk of breast cancer. This information about the result of the mammogram report was provided to the patient to raise their awareness. Use this report when you speak with the patient about their risks for breast cancer, which includes their family history. At that time, you may recommend additional screening tests (Ultrasoun d or MRI) as these tests may add significant information. A negative radiographic report should not delay biopsy if a dominant or clinically suspicious mass is present. Up to ten percent of cancers are not identified on mammography. A negative report may reinforce clinical impression. Adenosis and dense breasts may obscure an underlying neoplasm. False positive reports average 6 to 10%. Patient will receive a letter notifying them of these results.
== END 2022-06-04 03:38 ==
LOC: DI 03:19
PROVIDERS: PCP Family Medicine; Visit Provider Nurse Practitioner Family
DX: Z12.31 Encounter for screening mammogram for malignant neoplasm of breast (principal); R92.8 Other abnormal and inconclusive findings on diagnostic imaging of breast; N60.02 Solitary cyst of left breast; N64.59 Other signs and symptoms in breast
CPT/HCPCS: 76642; 77063; 77067

== ENCOUNTER 2022-06-12 00:39 | Outpatient (CLI) | payer MEDICAID, SELFPAY ==
--- NOTE | 2022-06-12 06:30 | DI.MRI_ITS ---
Exam(s) MR THORACIC SPINE WO EXAM: MR THORACIC SPINE WO CLINICAL HISTORY: mid-back pain, persistent T12 compression FX,S22.000A. TECHNIQUE: Multiplanar multisequence MRI of the Thoracic spine was performed. COMPARISON: CR XR THORACOLUMB JUNCT 2V from 04/24/2022 FINDINGS: Bones: There are old compression deformities of T11 and T12. There is chronic mild retropulsion of t he posterior aspect of T12 into the spinal canal but no significant central spinal canal stenosis res ults. Alignment is satisfactory. Mild degenerative endplate signal changes are seen at various level s in the thoracic spine. Cord: The thoracic cord is normal size and signal intensity. No intrinsic cord lesion is present. Discs: No disc herniation or bulge is present. No significant central spinal canal or neural foramina l stenosis is seen. Soft tissues: Normal. IMPRESSION: 1. Normal signal in the spinal cord. 2. No significant central spinal canal or neural foraminal stenosis. 3. Stable old T11 and T12 compression deformities. DATA REPOSITORY:
--- NOTE | 2022-06-12 06:30 | DI.MRI_ITS ---
Exam(s) MR CERVICAL SPINE WO EXAM: MR CERVICAL SPINE WO CLINICAL HISTORY: neck pain with radiation down right upper extremitY,MYELOPATHY,G95.9,M54.12 TECHNIQUE: Multiplanar multisequence MRI of the cervical spine was performed without intravenous con trast. COMPARISON: No exams were available for comparison FINDINGS: BONES: Vertebral body heights are maintained. Intervertebral disc spaces are normal. Alignment is nor mal. Bone marrow signal intensity is within normal limits. CERVICAL CORD: Craniovertebral junction is unremarkable. The cervical cord is normal in size. There i s question of mild increased signal within the spinal cord posterior to the C2 and C3 vertebra. SOFT TISSUES: Note is made of an empty sella. C2-3: No disc herniation or bulge is identified. No significant central spinal canal or neural forami nal stenosis. C3-4: No disc herniation or bulge is identified. No significant central spinal canal or neural forami nal stenosis C4-5: No disc herniation or bulge is identified. There is mild asymmetric prominence of the osteophyt e disc complex to the right at C4-C5. This does cause mild right neural foraminal narrowing. No signi ficant central spinal canal or left neural foraminal stenosis C5-6: No disc herniation or bulge is identified. No significant central spinal canal or neural forami nal stenosis C6-7: No disc herniation or bulge is identified. No significant central spinal canal or neural forami nal stenosis C7-T1: No disc herniation or bulge is identified. No significant central spinal canal or neural sharri inal stenosis IMPRESSION: 1. Mild prominence of the osteophyte disc complex at C4-C5 which appears to cause mild right neural f oraminal narrowing. 2. Question of mild increased signal in the spinal cord posterior to the C2 and C3 vertebra. No cord enlargement or central spinal canal stenosis is seen. Postcontrast MRI of the cervical spine should b e considered for further evaluation. DATA REPOSITORY:
== END 2022-06-12 00:59 ==
LOC: DI 00:39
PROVIDERS: PCP Family Medicine; Visit Provider Internal Medicine
DX: S22.000A Wedge compression fracture of unspecified thoracic vertebra, initial encounter for closed fracture (principal); G95.9 Disease of spinal cord, unspecified; M54.12 Radiculopathy, cervical region; X58.XXXA Exposure to other specified factors, initial encounter
CPT/HCPCS: 72141; 72146

== ENCOUNTER 2022-07-16 07:08 | Outpatient (CLI) | payer MEDICAID, SELFPAY ==
--- NOTE | 2022-07-16 06:00 | DI.RAD_ITS ---
Exam(s) XR PAIN CLINIC CERVICAL SP 2V EXAM: XR PAIN CLINIC CERVICAL SP 2V CLINICAL HISTORY: Dx: Cervical Radiculopathy TECHNIQUE: 2D and realtime digital imaging was performed. Radiologist not present. CONTRAST MATERIAL: None. COMPARISON: No exams were available for comparison FINDINGS: Fluoroscopy was provided for pain management therapy. Please refer to procedure report or details. Radiation Exposure Index: Ka,r=4.52 mGy IMPRESSION: As above. RADIATION DOSE DELIVERED:
[2022-07-16 07:18] VITALS: BP 122/83; PULSE 88; RESP 20; TEMP 36.2; O2SAT 95
--- NOTE | 2022-07-16 08:21 | PDOC.PAIN_ITS ---
Date of service: 07/16/22 Time of Service: 08:25 Pain Clinic Procedure Note Procedure Note Procedure Note: Cervical Epidural Steroid Injection Yaneth Blair has been referred to the [facility] for cervical epidural steroid injection. COMMENTS: The patient was seen by Dr. Mayers in this clinic and this procedure was recommended. Her pre-procedure pain VAS was 8/10. Dx: Cervical radiculopathy Johnnie was interviewed and the medical record reviewed. There were no medical, pharmacologic, radiographic or other structural contraindications to attempting fluoroscopically guided epidural steroid injection. Risks and expected side effects as well as potential benefit of the procedure were reviewed with Johnnie , and Johnnie voiced concerns addressed. The printed consent form was signed and witnessed. Standard time-out procedure was performed. The patient was placed in the prone position on the fluoroscopy table and automated blood pressure cuff and pulse oximeter applied. The skin entry point for entering the epidural space by a midline C7-T1 interlaminar approach was identified under fluoroscopy and marked. Following thorough Chlorhexadine preparation of the skin and draping and 1% lidocaine infiltration of the skin entry point and subcutaneous tissues, an 18 gauge Tuohy needle was placed under fluoroscopic guidance and with loss of resistance technique into the C7-T1 e pidural space. Upon needle placement and loss of resistance there were no paresthesiae or return of blood or CSF through the needle. 1 cc of Omnipaque 240 was injected with clear epidural spread in the A/P, lateral and oblique views. 15 mg of preservative free Dexomethasone was injected with no unusual discomfort expressed by Johnnie. This was flushed with 1 cc of normal saline. Johnnie 's vital signs were stable throughout the procedure and were as recorded in the docflowsheet by the nursing staff. Follow up plans and appointments were discussed with the Johnnie. Post procedure instruction was given as documented in nursing documentation and having met discharge criteria, Johnnie was discharged from the [facility]. COMMENTS: Post-procedure pain VAS was 3/10. If this procedure is helpful (at least 50% improvement or pain and/or function for at least 3 months) it can be completed a maximum of 3 times per 12 months. Manuel Earl DO, MPH [facility]-Pain Management [facility] CC: Carrie Rene V
[2022-07-16] MEDS: Dexamethasone Sod. Phos./Pres-Free 10 MG/ML VIAL IJ (08:24)
[2022-07-16] MEDS: Omnipaque 240 MG/ML 50 ML BTL IJ (08:25)
[2022-07-16 08:27] VITALS: BP 102/74; PULSE 90; RESP 13; O2SAT 96
== END 2022-07-16 07:09 | disposition home or self-care (01) ==
LOC: PC 07:08
PROVIDERS: PCP Family Medicine; Visit Provider Preventive Medicine Occupational Medicine
DX: M54.12 Radiculopathy, cervical region (principal)
CPT/HCPCS: 62321; 72040; Q9967

== ENCOUNTER 2022-09-02 01:25 | Outpatient (CLI) | payer MEDICAID, SELFPAY ==
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
== END 2022-09-02 01:45 ==
LOC: DI 01:25
PROVIDERS: PCP Family Medicine; Visit Provider Nurse Practitioner Family
DX: R92.8 Other abnormal and inconclusive findings on diagnostic imaging of breast (principal)
CPT/HCPCS: 77062; 77066; G0279

== ENCOUNTER 2022-12-07 18:58 | Outpatient (REF) | payer MEDICAID, SELFPAY ==
[2022-12-07 19:56] LABS: ALT 19 U/L (14-59); AST 21 U/L (15-37); Albumin 3.7 g/dL (3.4-5.0); Alkaline Phosphatase 76 U/L (46-116); BUN 19 mg/dL (7-18); Bilirubin, Total 0.5 mg/dL (0.2-1.0); CREATININE 0.9 mg/dL (0.55-1.02); Calcium 9.3 mg/dL (8.5-10.1); Calculated LDL 118 mg/dL (<100); Chloride 104 mmol/L (98-107); Cholesterol 195 mg/dL (<200); Estimated GFR 76.44 (mL/min/1.73m2); Glucose 95 mg/dL (74-106); HDL Cholesterol 49 mg/dL (40-60); Potassium 4.1 mmol/L (3.5-5.1); Sodium 138 mmol/L (136-145); TSH 1.88 uIU/mL (0.36-3.74); Total Protein 7.4 g/dL (6.4-8.2); Triglyceride 143 mg/dL (<150)
[2022-12-07 20:11] LABS: Vitamin D 25 Total 15.6 ng/mL (30-100)
== END 2022-12-07 18:59 | disposition home or self-care (01) ==
LOC: NCHCN 18:58
PROVIDERS: PCP Family Medicine; Visit Provider Nurse Practitioner Family
DX: Z00.00 Encounter for general adult medical examination without abnormal findings (principal); E55.9 Vitamin D deficiency, unspecified
CPT/HCPCS: 80053; 80061; 82306; 84443

== ENCOUNTER 2023-03-25 18:08 | Emergency (ER) | payer MEDICAID, SELFPAY ==
[2023-03-25 18:13] VITALS: BP 132/93; PULSE 104; RESP 20; TEMP 36.5; O2SAT 99
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
[2023-03-25 19:46] LABS: Abs Immature Grans 0.03 10^3/uL (0.0-0.06); Absolute Basophil Count 0.07 10^3/uL (0.0-0.2); Absolute Eosinophil Count 0.38 10^3/uL (0.0-0.7); Absolute Monocyte Count 0.64 10^3/uL (0.1-0.8); Absolute Neutrophil Count 7.41 10^3/uL (1.2-6.7); Basophils % 0.7; Eosinophils % 3.6; HCT 41.1 % (36.0-46.0); HGB 13.7 g/dL (11.2-15.7); Immature Grans % 0.3; MCH 28.2 pg (27.0-33.0); MCHC 33.3 % (32.0-36.0); MCV 85 fL (80-95); MPV 10.1 fL (8.0-11.0); Monocytes % 6.1; Neutrophils % 70.3; Platelet Count 317 10^3/uL (130-400); RBC 4.85 10^6/uL (3.93-5.22); RDW 12.6 % (11.7-14.6); RDW-SD 38.3 fL; WBC 10.53 10^3/uL (4.4-10.8)
[2023-03-25] MEDS: ACETAMINOPHEN 1,000 MG/100 ML BTL 400 MG IVPB (19:56)
[2023-03-25 20:03] LABS: Bilirubin Negative (Negative); Blood Trace-lysed (Negative); Clarity Clear (Clear); Glucose Negative (Negative); Ketones Negative (Negative); Leukocyte Esterase Trace (Negative); Nitrite Negative (Negative); Urobilinogen 0.2 mg/dL (Up to 0.2); pH 6.5 (5-8)
[2023-03-25 20:06] LABS: ALT 19 U/L (14-59); AST 13 U/L (15-37); Albumin 3.5 g/dL (3.4-5.0); Alkaline Phosphatase 70 U/L (46-116); Amylase 42 U/L (25-115); Anion Gap 7.9 mmol/L (3-11); BUN 16 mg/dL (7-18); Bilirubin, Total 0.5 mg/dL (0.2-1.0); CO2 26.1 mmol/L (21.0-32.0); Calcium 9.3 mg/dL (8.5-10.1); Chloride 104 mmol/L (98-107); Estimated GFR 67.36 (mL/min/1.73m2); Glucose 106 mg/dL (74-106); Lipase 24 U/L (16-77); Magnesium 2.2 mg/dL (1.8-2.4); Potassium 4.2 mmol/L (3.5-5.1); Sodium 138 mmol/L (136-145); Total Protein 7.5 g/dL (6.4-8.2); Troponin I < 50 ng/L (<or=60)
[2023-03-25 20:11] LABS: Bacteria Rare HPF (Negative); C & S Indicated? Yes; Casts Negative LPF (Negative); Crystals Negative HPF (Negative); Epithelial Cells Rare HPF (Negative); Mucus Negative (Negative); RBC 0-2 HPF (0-2); WBC 0-2 HPF (0-5)
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
[2023-03-25 22:27] VITALS: BP 129/84; PULSE 85; TEMP 36.3; O2SAT 93
[2023-03-25 22:28] VITALS: BP 129/84; PULSE 85; RESP 20; TEMP 36.3; O2SAT 93
== END 2023-03-25 22:28 | disposition home or self-care (01) ==
PROVIDERS: Emergency Provider Student in an Organized Health Care Education/Training Program; PCP Family Medicine
DX: M54.2 Cervicalgia (principal); G44.309 Post-traumatic headache, unspecified, not intractable; V49.50XA Passenger injured in collision with unspecified motor vehicles in traffic accident, initial encounter
CPT/HCPCS: 80053; 83690; 96374; 99284; 70450; 71046; 72125; 81003; 81015; 82150; 83735; 84484; 85025; 87086; J0131

== ENCOUNTER 2023-05-26 10:31 | Emergency (ER) | payer MEDICAID, SELFPAY ==
[2023-05-26 10:34] VITALS: BP 125/76; PULSE 89; RESP 16; TEMP 36.3; O2SAT 97
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
[2023-05-26 10:54] LABS: Bilirubin Small (Negative); Blood Moderate (Negative); Clarity Cloudy (Clear); Glucose Negative (Negative); Ketones Trace mg/dL (Negative); Leukocyte Esterase Moderate (Negative); Nitrite Negative (Negative); Specific Gravity >= 1.030 (1.005-1.025); Urobilinogen 0.2 mg/dL (Up to 0.2)
--- NOTE | 2023-05-26 11:00 | DI.CT_ITS ---
Exam(s) CT RENAL COLIC WO EXAM: CT RENAL COLIC WO CLINICAL HISTORY: pain, decrease urine output. TECHNIQUE: Imaging Protocol: Axial computed tomography images with coronal and sagittal reformatted images were created and reviewed. COMPARISON: CT CT CHEST/ABD/PEL W from 11/02/2021 FINDINGS: ABDOMEN: Lung Bases: Normal where visualized. Liver: Normal density. There is a stable tiny hypodensity in the left lobe of the liver. This likely reflects a small cyst. It is too small for further characterization. Gallbladder and biliary tract: The gallbladder is contracted. Gallstone is present. No significant biliary ductal dilatation is present. Pancreas: Normal density, no abnormal calcifications or inflammatory process. Spleen: Normal. Kidneys: Normal size, contour and axis.No radiodense stones or obstructive uropathy. No masses seen. Adrenal glands: No mass is seen. Lymph nodes: Within normal limits. Abdominal Aorta: Abdominal portion non-dilated. PELVIS: Bladder:The urinary bladder is incompletely distended. There is mild thickening of the wall of the u rinary bladder. There is mild stranding around the urinary bladder in the soft tissues. Bowel: No obstruction or bowel wall thickening. Appendix is unremarkable. There is a duodenal divert iculum adjacent to the 3rd portion of the duodenum. Peritoneal cavity: No ascites, collection or mesenteric inflammatory response. No free air. Reproductive organs: Unremarkable as visualized. Bones: Within normal limits for the patient's age. There is an old T12 compression fracture deformit y. Soft Tissues: Within normal limits. IMPRESSION: 1. No evidence of nephrolithiasis or hydronephrosis. 2. Mild thickening of the wall of the urinary bladder. This may be due to underdistention. Cystitis cannot be excluded. Please correlate clinically. 3. Cholelithiasis. No biliary ductal dilatation. RADIATION DOSE DELIVERED: 1,053.08mGy.cm Total DLP DATA REPOSITORY: All CT scans at this facility are submitted to the National Radiology Data Registry (NRDR) Dose Index Registry (DIR) with the [employer] (A[employer]). RADIATION OPTIMIZATION: All CT scans at this facility use at least one of these dose optimization te chniques: automated exposure control; mA and/or kV adjustment per patient size (includes targeted exa ms where dose is matched to clinical indication); or iterative reconstruction.
[2023-05-26 11:04] LABS: Bacteria Moderate HPF (Negative); C & S Indicated? No/Sq. Contamination; Casts Negative LPF (Negative); Crystals Negative HPF (Negative); Epithelial Cells Many HPF (Negative); Mucus Moderate (Negative); RBC 20-50 HPF (0-2); WBC 20-50 HPF (0-5)
[2023-05-26 11:15] VITALS: BP 125/76; PULSE 89; RESP 16; TEMP 36.3; O2SAT 97
[2023-05-26 11:33] LABS: Abs Immature Grans 0.04 10^3/uL (0.0-0.06); Absolute Basophil Count 0.08 10^3/uL (0.0-0.2); Absolute Eosinophil Count 0.38 10^3/uL (0.0-0.7); Absolute Lymphocyte Count 1.83 10^3/uL (1.2-3.4); Absolute Monocyte Count 0.56 10^3/uL (0.1-0.8); Basophils % 0.7; Eosinophils % 3.3; HGB 14.1 g/dL (11.2-15.7); Immature Grans % 0.3; Lymphocytes % 15.9; MCH 28.3 pg (27.0-33.0); MCHC 33.6 % (32.0-36.0); MCV 84 fL (80-95); Monocytes % 4.9; Neutrophils % 74.9; Platelet Count 375 10^3/uL (130-400); RBC 4.99 10^6/uL (3.93-5.22); RDW-SD 39.5 fL; WBC 11.48 10^3/uL (4.4-10.8)
[2023-05-26 11:49] LABS: ALT 17 U/L (14-59); AST 9 U/L (15-37); Albumin 3.4 g/dL (3.4-5.0); Alkaline Phosphatase 73 U/L (46-116); Anion Gap 6.5 mmol/L (3-11); BUN 18 mg/dL (7-18); Bilirubin, Total 0.4 mg/dL (0.2-1.0); CO2 28.5 mmol/L (21.0-32.0); CREATININE 1.1 mg/dL (0.55-1.02); Calcium 9.5 mg/dL (8.5-10.1); Chloride 106 mmol/L (98-107); Estimated GFR 59.71 (mL/min/1.73m2); Glucose 122 mg/dL (74-106); Potassium 4.5 mmol/L (3.5-5.1); Sodium 141 mmol/L (136-145); Total Protein 7.7 g/dL (6.4-8.2)
== END 2023-05-26 12:52 | disposition home or self-care (01) ==
PROVIDERS: Emergency Provider Physician Assistant; PCP Family Medicine
DX: N39.0 Urinary tract infection, site not specified; Z87.440 Personal history of urinary (tract) infections; K80.20 Calculus of gallbladder without cholecystitis without obstruction; E03.9 Hypothyroidism, unspecified; Z79.899 Other long term (current) drug therapy
CPT/HCPCS: 36415; 80053; 99284; 74176; 81003; 81015; 85025

== ENCOUNTER 2024-02-17 14:49 | Outpatient (REF) | payer MEDICAID, SELFPAY ==
[2024-02-17 15:17] LABS: Abs Immature Grans 0.03 10^3/uL (0.0-0.06); Absolute Basophil Count 0.08 10^3/uL (0.0-0.2); Absolute Eosinophil Count 0.38 10^3/uL (0.0-0.7); Absolute Lymphocyte Count 1.59 10^3/uL (1.2-3.4); Absolute Monocyte Count 0.49 10^3/uL (0.1-0.8); Absolute Neutrophil Count 5.71 10^3/uL (1.2-6.7); Eosinophils % 4.6 %; HGB 14.4 g/dL (11.2-15.7); Immature Grans % 0.4 %; Lymphocytes % 19.2 %; MCH 28.5 pg (27.0-33.0); MCHC 33.5 % (32.0-36.0); MCV 85 fL (80-95); MPV 10.7 fL (8.0-11.0); Monocytes % 5.9 %; Neutrophils % 68.9 %; Platelet Count 319 10^3/uL (130-400); RBC 5.05 10^6/uL (3.93-5.22); RDW 12.6 % (11.7-14.6); RDW-SD 38.8 fL; WBC 8.28 10^3/uL (4.4-10.8)
[2024-02-17 15:51] LABS: ALT 29 U/L (14-59); AST 21 U/L (15-37); Albumin 3.6 g/dL (3.4-5.0); Alkaline Phosphatase 79 U/L (46-116); Anion Gap 5.7 mmol/L (3-11); BUN 15 mg/dL (7-18); Bilirubin, Total 0.48 mg/dL (0.2-1.0); CO2 28.3 mmol/L (21.0-32.0); Calcium 9.3 mg/dL (8.5-10.1); Chloride 105 mmol/L (98-107); Estimated GFR 66.95 (mL/min/1.73m2); Glucose 92 mg/dL (74-106); Magnesium 2.3 mg/dL (1.8-2.4); Potassium 4.3 mmol/L (3.5-5.1); Sodium 139 mmol/L (136-145); Total Protein 7.5 g/dL (6.4-8.2); Vitamin D 25 Total 24.6 ng/mL (30-100)
[2024-02-17 16:26] LABS: Hemoglobin A1C 5.2 % (<5.7)
== END 2024-02-17 14:50 | disposition home or self-care (01) ==
LOC: NCHCN 14:49
PROVIDERS: PCP Family Medicine; Visit Provider Nurse Practitioner Family
DX: E03.9 Hypothyroidism, unspecified (principal); E55.9 Vitamin D deficiency, unspecified; R73.01 Impaired fasting glucose; R53.83 Other fatigue; R25.2 Cramp and spasm
CPT/HCPCS: 80053; 82306; 83036; 83735; 84443; 85025

== ENCOUNTER 2025-02-22 17:59 | Outpatient (REF) | payer MEDICAID, SELFPAY ==
[2025-02-22 19:42] LABS: TSH 7.06 uIU/mL (0.36-3.74)
== END 2025-02-22 18:00 | disposition home or self-care (01) ==
LOC: NCHCN 17:59
PROVIDERS: PCP Family Medicine; Visit Provider Nurse Practitioner Family
DX: E03.9 Hypothyroidism, unspecified (principal)
CPT/HCPCS: 84439; 84443